=== PATIENT | male | born 1995 | race Caucasian/White ===

== ENCOUNTER 2018-07-14 08:08 | Day surgery (SDC) | payer OTHER ==
[2018-07-11 16:32] VITALS: BMI 23.2
[~2018-07-14] VITALS: Ht 180.3 cm; Wt 70.9 kg
[2018-07-14] VITALS (12 sets, daily range): BP systolic 108–132; BP diastolic 47–82; PULSE 50–60; RESP 11–31; Ht 180.3 cm; Wt 70.9 kg
--- NOTE | 2018-07-14 10:35 | HPN ---
Date/Time of Note Date/Time of Note DATE: 07/14/18 TIME: 10:35 Interval H&P Admission Note Pt. seen H&P reviewed: No system changes ROSS URRUTIA MD Jul 14, 2018 10:35
--- NOTE | 2018-07-14 10:41 | PREAC ---
Date/Time of Note Date/Time of Note DATE: 07/14/18 TIME: 10:40 Anesthesia Eval and Record Evaluation Time Pre-Procedure Interview DATE: 07/14/18 TIME: 10:40 Age 23 Sex male NPO: 8 hrs Preoperative diagnosis RIGHT WRIST CYST GANGLION Planned procedure ARTHROTOMY CAPSULECTOMY, Past Medical History Past Medical History: None Surgery & Anesthesia Issues No known issue Meds Anticoagulation: No Beta Sanket within 24 hr: No Reason Beta Sanket not given: Pt. not on B-Sanket No Active Prescriptions or Reported Meds Meds reviewed: Yes Allergies Uncoded Allergies: ANESTHETIC MEDS (Adverse Reaction, Severe, UNNOWN, 07/11/18) HPT STATE BAD REACTION TO ANESTHESIA, FOR TOOTH SURGERY Allergies Reviewed: Yes Labs/Studies Labs Reviewed: Reviewed by anesthesiologist Result Diagram: 07/14/18 0845 Laboratory Tests 07/14/18 08:45 test: Negative Studies: ECG (N/A), CXR (N/A) Pre-procedure Exam Last vitals Vital Signs Date Temp Pulse Resp B/P (MAP) Pulse Ox O2 O2 Flow FiO2 Time Delivery Rate 07/14/18 97.6 54 16 122/68 99 Room Air 08:52 (86) Airway: Adequate mouth opening Mallampati: Mallampati I Teeth: Normal Lung: Normal Heart: Normal ASA Physical Status ASA physical status: 1 Emergency: None Planned Anesthetic General/MAC: LMA Planned Pain Management Parenteral pain med Pre-operative Attestations Prior to commencing anesthesia and surgery, the patient was re-evaluated, there was verification of: *The patient's identity *The results of appropriate recent lab work and preoperative vital signs *The above evaluation not changing prior to induction *Anesthetic plan, risk benefits, alternative and complications discussed with patient/family; questions answered; patient/family understands, accepts and wishes to proceed. AMNA PALMA MD Jul 14, 2018 10:41
[2018-07-14] MEDS ORDERED: LIDOCAINE 1%/EPI (1:100,000) (MDV) 20 ML ONE (10:44)
[2018-07-14] MEDS ORDERED: PROPOFOL 20 ML ONE (10:45)
[2018-07-14] MEDS ORDERED: FENTAnyl 50 MCG/ML VIAL ONE ×2 (10:46→11:03)
[2018-07-14] MEDS ORDERED: MIDAZOLAM 1 MG/ML 2 ML INJ ONE (10:46)
[2018-07-14] MEDS ORDERED: METOCLOPRAMIDE 10 MG INJ ONE (10:46)
[2018-07-14] MEDS ORDERED: ONDANSETRON 4 MG INJ ONE (10:46)
[2018-07-14] MEDS ORDERED: KETOROLAC 30 MG INJ ONE (10:47)
[2018-07-14] MEDS ORDERED: OXYCODONE/ACETAMINOPHEN (5/325) TAB PO PRN ×2 (11:00)
[2018-07-14] MEDS ORDERED: MEPERIDINE 25 MG INJ IV PRN (11:00)
[2018-07-14] MEDS ORDERED: HYDROmorphONE 1 MG/5 ML IV SYRINGE IV PRN ×3 (11:00)
[2018-07-14] MEDS ORDERED: DIPHENHYDRAMINE 50 MG INJ IV PRN (11:00)
[2018-07-14] MEDS ORDERED: ONDANSETRON 4 MG INJ IV PRN (11:00)
[2018-07-14] MEDS ORDERED: CEFAZOLIN 1 GM INJ ONE (11:10)
--- NOTE | 2018-07-14 11:32 | SIPON ---
Date/Time of Note Date/Time of Note DATE: 07/14/18 TIME: 11:30 Operative Report Preoperative Diagnosis right wrist dorsal ganglion cyst Postoperative Diagnosis same Operation/Procedure Performed excision cyst arthrotomy capsulotomy Surgeon ash customer marketing assistant staff Anesthesia: MAC Estimated blood loss: minimal Transfusion Required none Specimen cyst Grafts/Implants none Complications none ROSS URRUTIA MD Jul 14, 2018 11:32
--- NOTE | 2018-07-14 11:35 | NUR ---
RECEIVED PATIENT FROM OR VIA [facility] POST RIGHT ARM ANTROSTOMY CAPSULECTOMY UNDER GENERA;L ANESTHESIA .PATIENT STILL SEDATED ON ARRIVAL .ORAL AIRWAY ON .ONO2 6L VIA FACE MASK SATURATING 98 %. SR .BP STABLE.DRESSING TO RIGHT HAND DRY AND INTACT .CAPILLARY REFILL TO RIGHT FINGERS GOOD AND WARM TO TOUCH.RIGHT HAND ELEVATED WITH PILLOW. ICE PACK APPLIED.
--- NOTE | 2018-07-14 12:12 | PAC ---
Date/Time of Note Date/Time of Note DATE: 07/14/18 TIME: 12:12 Post-Anesthesia Notes Post-Anesthesia Note Last documented vital signs ital Signs Date Temp Pulse Resp B/P (MAP) Pulse Ox O2 O2 Flow FiO2 Time Delivery Rate 07/14/18 97.9 54 11 111/48 98 Mask 11:49 (69) 07/14/18 6.0 11:48 07/14/18 97.8 11:39 Activity: WNL Respiratory function: WNL Cardiovascular function: WNL Mental status: Baseline Pain reasonably controlled: Yes Hydration appropriate: Yes Nausea/Vomiting absent: No AMNA PALMA MD Jul 14, 2018 12:12
--- NOTE | 2018-07-14 12:12 | NUR ---
PATIENT NOW FULLY AWAKE DENIES PAIN.
--- NOTE | 2018-07-14 12:31 | NUR ---
TRANSFERRED TO [facility] IN STABLE CONDITION . DENIES PAIN DRESSING DRY AND INTACT .NO SIGNS OF BLEEDING. REPORT GIVEN TO DARYN. GIRLFRIEND INFORMED.
--- NOTE | 2018-07-14 13:06 | NUR ---
SDS: PATIENT D/C HOME IN STABLE CONDITION, VS WITHIN NORMAL LIMITS, NO PAIN OR DISCOMFORT REPORTED. ALL D/C INSTRUCTIONS PROVIDED TO PATIENT AND FAMILY, THEY VERBALIZED UNDERSTANDING AND READINESS TO HOME. NO BLEEDING AT INCISION SITE.
--- NOTE | 2018-07-14 13:18 | OPR ---
DATE OF OPERATION: 07/14/2018 SURGEON: Ross Vasquez MD RESIST COATER DEVELOPER: Staff. PILOT CONTROL OPERATOR: Dr. Stoner ANESTHESIA TECHNIQUE: General anesthetic by the anesthesiologist, local anesthetic by the surgeon. PREOPERATIVE DIAGNOSIS: Dorsal ganglion cyst, right wrist. POSTOPERATIVE DIAGNOSIS: Dorsal ganglion cyst, right wrist. OPERATION PERFORMED: Right wrist excision dorsal ganglion cyst, right wrist arthrotomy, right wrist capsulotomy. SURGICAL PAUSE: I examined the patient in the preop holding area, marked the site with a marking pen, showed the marked site to the patient and his girlfriend as witness. INFORMED CONSENT: At the time we scheduled the operative procedure, we talked to patient about the risks and hazards of surgery discussing operative mortality, wound infection, nerve injury, good result, bad result, potential complications including injury nerve fibers and superficial radial nerve, lateral antebrachial cutaneous nerve or pseudoaneurysm which I have seen exactly once in 37 years. At the end of the conversation, the patient signed a note confirming the informed consent conversation. DESCRIPTION OF PROCEDURE: The patient was taken to surgery, anesthetized as above, sterile prep and drape performed. His hand was exsanguinated and elevation and pneumatic tourniquet inflated to 250 mmHg. Transverse incision was made on the second, third and fourth dorsal compartment tendons were identified. We looked for and protect cutaneous nerve fibers, With cutting cautery we excised the cyst along with a portion of the dorsal wrist capsule. We cauterized the edges, deflated the tourniquet. The hemostasis was excellent. The wound was irrigated and closed with interrupted Vicryl Rapide suture and a bulky Banuelos type dressing was applied. DISCHARGE MEDICATIONS: 1. Hydrocodone. 2. Acetaminophen. 3. Keflex. FOLLOWUP: Will be in our office in a week. Dictated By: ROSS MACE/BOONE Conf#: [id number] DID#: [id number] MTDD
== END 2018-07-14 13:15 | disposition home or self-care (01) ==
LOC: SDS 08:08
PROVIDERS: ATTEND Orthopaedic Surgery Hand Surgery
DX: M67.431 Ganglion, right wrist (principal)
CPT/HCPCS: 25111; 85025; 88304; J0690; J1885; J2250; J2405; J2765; J3010; Z7610